=== PATIENT | female | born 1975 | race American Indian/Alaskan Native ===

== ENCOUNTER 2016-07-19 14:28 | Emergency (ER) | payer MEDICARE ==
[2016-07-19 14:36] VITALS: BP 119/80
--- NOTE | 2016-07-19 16:06 | Emergency Department Report ---
- General Chief Complaint: Upper Respiratory Infection Stated Complaint: FLU LIKE SYMPTOMS Time Seen by Provider: 07/19/16 15:46 Source: patient, family Mode of arrival: Ambulatory Limitations: No Limitations - History of Present Illness Initial Comments: Patient here reports suicidal, fever or earache bodyache cough 3 days. She says she's been having nasal congestion for 3 weeks but her symptoms getting worse over the last 3 days. She says she is [id number] cold and cough medicine but didn't help. Denies any shortness of breath or chest pain. Denies any drooling or difficulty swallowing. He says she's having generalized pain to include her throat 10 out of 10 and achy. Denies any nausea vomiting. Denies any abdominal pain or diarrhea. MD Complaint: fever, cough, sore throat, rhinorrhea, nasal congestion Onset/Timin -: week(s) Severity: severe Severity scale (0 -10): 10 Quality: aching Consistency: constant Improves With: OTC cold medicine Worsens With: nothing Context: other (unknown) Associated Symptoms: fever, chills, myalgias, rhinorrhea, nasal congestion, sore throat, cough, ear pain. denies: diaphoresis, headache, stiff neck, chest pain, shortness of breath, abdominal pain, nausea, vomiting, diarrhea, dysuria, rash, confusion, right sweats, weight loss, epistaxis, hoarseness Treatments Prior to Arrival: none - Related Data Previous Rx's Medication Instructions Recorded Last Taken Type Azithromycin [Zithromax Z-LILIAN] 250 mg PO DAILY #14 tab 07/19/16 Unknown Rx Brompheniramine/Pseudoephed/Dm 10 ml PO BID PRN #100 syrup 07/19/16 Unknown Rx [Bromfed Dm Cough Syrup] Cetirizine HCl [ZyrTEC] 10 mg PO QDAY #14 capsule 07/19/16 Unknown Rx Fluticasone [Flonase] 1 spray NS QDAY #1 bottle 07/19/16 Unknown Rx Allergies Allergy/AdvReac Type Severity Reaction Status Date / Time No Known Allergies Allergy Unverified 07/19/16 14:34 ED Review of Systems ROS: Stated complaint: FLU LIKE SYMPTOMS Other details as noted in HPI Comment: All other systems reviewed and negative Constitutional: chills, fever Eyes: denies: eye pain, eye discharge ENT: ear pain, throat pain, congestion Respiratory: no symptoms reported, cough. denies: orthopnea, shortness of breath, SOB with exertion, SOB at rest, stridor, wheezing Cardiovascular: denies: chest pain, palpitations, edema, syncope Gastrointestinal: denies: abdominal pain, nausea, vomiting, diarrhea Genitourinary: denies: urgency, dysuria, frequency, hematuria, discharge, abnormal menses, dyspareunia Musculoskeletal: arthralgia, myalgia. denies: back pain, joint swelling Skin: denies: rash Neurological: denies: headache, weakness, numbness, paresthesias, confusion, abnormal gait, vertigo ED Past Medical Hx - Past Medical History Previous Medical History?: No Hx Seizures: Yes Hx Psychiatric Treatment: Yes Additional medical history: Fibromyalgia, anxiety depression disorder - Surgical History Past Surgical History?: Yes Additional Surgical History: Ectopic - Family History Family history: hypertension - Social History Smoking Status: Current Every Day Smoker Substance Use Type: Alcohol, Marijuana - Medications Home Medications: Home Medications Medication Instructions Recorded Confirmed Last Taken Type Azithromycin [Zithromax Z-LILIAN] 250 mg PO DAILY #14 tab 07/19/16 Unknown Rx Brompheniramine/Pseudoephed/Dm 10 ml PO BID PRN #100 syrup 07/19/16 Unknown Rx [Bromfed Dm Cough Syrup] Cetirizine HCl [ZyrTEC] 10 mg PO QDAY #14 capsule 07/19/16 Unknown Rx Fluticasone [Flonase] 1 spray NS QDAY #1 bottle 07/19/16 Unknown Rx ED Physical Exam - General Limitations: No Limitations General appearance: alert, in no apparent distress - Head Head exam: Present: atraumatic, normocephalic, normal inspection - Eye Eye exam: Present: normal appearance, PERRL, EOMI. Absent: scleral icterus, conjunctival injection, periorbital swelling, periorbital tenderness Pupils: Present: normal accommodation - ENT ENT exam: Present: normal orophraynx, mucous membranes moist, normal external ear exam, other (nasal mucosa congested.nasal mucosa erythema. clear drainage. frontal and max. sinus TTP.). Absent: TM's normal bilaterally - Neck Neck exam: Present: normal inspection, full ROM. Absent: tenderness, meningismus, lymphadenopathy - Expanded Neck Exam Expanded Neck exam: Absent: tenderness, midline deformity, anterior neck swelling, tracheal deviation - Respiratory Respiratory exam: Present: normal lung sounds bilaterally, respiratory distress , other (congested cough). Absent: wheezes, rales, rhonchi, stridor, chest wall tenderness, accessory muscle use, decreased breath sounds, prolonged expiratory - Cardiovascular Cardiovascular Exam: Present: regular rate, normal rhythm, normal heart sounds - GI/Abdominal GI/Abdominal exam: Present: soft, normal bowel sounds. Absent: distended, tenderness, guarding, rebound, rigid - Extremities Exam Extremities exam: Present: normal inspection, full ROM, normal capillary refill. Absent: tenderness, pedal edema, joint swelling, calf tenderness - Back Exam Back exam: Present: normal inspection, full ROM. Absent: tenderness, CVA tenderness (R), CVA tenderness (L), muscle spasm, paraspinal tenderness, vertebral tenderness, rash noted - Neurological Exam Neurological exam: Present: alert, oriented X3, normal gait - Psychiatric Psychiatric exam: Present: normal affect, normal mood - Skin Skin exam: Present: warm, dry, intact, normal color. Absent: rash ED Course Vital Signs 07/19/16 07/19/16 14:34 16:25 Temperature 99.3 F Pulse Rate 103 H Respiratory 20 18 Rate Blood Pressure 119/80 O2 Sat by Pulse 100 Oximetry Vital Signs 07/19/16 07/19/16 07/19/16 14:34 16:25 19:00 Temperature 99.3 F Pulse Rate 103 H 84 Respiratory 20 18 18 Rate Blood Pressure 119/80 O2 Sat by Pulse 100 97 Oximetry - Reevaluation(s) Reevaluation #1: 07/19/16 17:31 Patient received Deltasone 60 mg and Motrin 800 mg in emergency room. ED Medical Decision Making - Radiology Data Radiology results: image reviewed interpreted by me: Chest x-ray revealed no acute cardiopulmonary processes - Medical Decision Making ED course: Patient here. Sinus infection. She was treated in emergency room with a physical 60 mg by mouth and Motrin 800 mg by mouth. Chest x-ray revealed no acute cardiopulmonary processes. Influenza A and B test negative. This was communicated with patient. She was discharged home with prescription for Flonase, Zyrtec, Bromfed-DM and Z-Lilian. I instructed her to follow up with her primary care physician if she does not have one to follow-up with outside Medical Center in 3-5 days. Critical care attestation.: If time is entered above; I have spent that time in minutes in the direct care of this critically ill patient, excluding procedure time. ED Disposition Clinical Impression: Acute bacterial rhinosinusitis, Cough Disposition: DISCHARGED TO HOME OR SELFCARE Is pt being admited?: No Does the pt Need Aspirin: No Condition: Stable Instructions: Acute Bacterial Rhinosinusitis (ED), Acute Cough (ED) Additional Instructions: Please flush your nostrils out with Saline nasal wash. Take Medication as prescribed Prescriptions: Azithromycin [Zithromax Z-LILIAN] 250 mg PO DAILY #14 tab Brompheniramine/Pseudoephed/Dm [Bromfed Dm Cough Syrup] 10 ml PO BID PRN #100 syrup PRN Reason: Cough Cetirizine HCl [ZyrTEC] 10 mg PO QDAY #14 capsule Fluticasone [Flonase] 1 spray NS QDAY #1 bottle Referrals: PRIMARY CARE, [Primary Care Provider] - 3-5 Days Forms: Work/School Release Form(ED), Accompanied Note
[2016-07-19] MEDS ORDERED: DELTASONE PO ONE (16:08)
[2016-07-19] MEDS ORDERED: MOTRIN PO ONE (16:08)
--- NOTE | 2016-07-22 12:59 | XRay Report ---
CHEST 2 VIEWS INDICATION: Cough, fever. COMPARISON: None similar at this institution. FINDINGS: PA and lateral chest radiographs demonstrate normal cardiomediastinal silhouette. Clear lungs. Intact bones. CONCLUSION: No acute disease in the chest. Thank you for the opportunity to participate in this patient's care.
== END 2016-07-19 19:00 | disposition home or self-care (01) ==
LOC: ED 14:28
DX: J01.90 Acute sinusitis, unspecified (principal); F17.200 Nicotine dependence, unspecified, uncomplicated; F12.10 Cannabis abuse, uncomplicated
CPT/HCPCS: 71020; 87400; 99283; J7512

== ENCOUNTER 2016-11-11 10:18 | Emergency (ER) | payer MEDICARE ==
[2016-11-11 10:38] VITALS: BP 125/81
[2016-11-11] MEDS ORDERED: MOTRIN PO ONE (10:45)
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
--- NOTE | 2016-11-11 12:19 | Emergency Department Report ---
ED General Adult HPI - General Chief complaint: Fall Stated complaint: FALL Time Seen by Provider: 11/11/16 11:59 Source: patient Mode of arrival: Ambulatory Limitations: No Limitations - History of Present Illness Initial comments: Symptoms in the ER today with some continued complaints of left lower back and left hip pain for the past 3 weeks. Patient states that she fell down some steps 3 weeks ago and has seen urgent care multiple times for such. Patient further notes that she also sees pain management and gets Lortab, Xanax, Neurontin, Flexeril on a regular basis. Patient came in today stating that she would like to have an MRI to see if she done any more damage to her known herniated disks in her lower back. Patient denies any loss of bowel control, urinary control, numbness, tingling. -: week(s) (3) Severity scale (0 -10): 6 - Related Data Previous Rx's Medication Instructions Recorded Last Taken Type Azithromycin [Zithromax Z-LILIAN] 250 mg PO DAILY #14 tab 07/19/16 Unknown Rx Brompheniramine/Pseudoephed/Dm 10 ml PO BID PRN #100 syrup 07/19/16 Unknown Rx [Bromfed Dm Cough Syrup] Cetirizine HCl [ZyrTEC] 10 mg PO QDAY #14 capsule 07/19/16 Unknown Rx Fluticasone [Flonase] 1 spray NS QDAY #1 bottle 07/19/16 Unknown Rx Allergies Allergy/AdvReac Type Severity Reaction Status Date / Time No Known Allergies Allergy Unverified 07/19/16 14:34 ED Review of Systems ROS: Stated complaint: FALL Other details as noted in HPI Constitutional: denies: chills, fever Eyes: denies: eye pain, eye discharge, vision change ENT: denies: ear pain, throat pain Respiratory: denies: cough, shortness of breath, wheezing Cardiovascular: denies: chest pain, palpitations Endocrine: no symptoms reported Gastrointestinal: denies: abdominal pain, nausea, diarrhea Genitourinary: denies: urgency, dysuria, discharge Musculoskeletal: back pain, arthralgia, myalgia. denies: joint swelling Skin: denies: rash, lesions Neurological: denies: headache, weakness, numbness, paresthesias, confusion Psychiatric: denies: anxiety, depression Hematological/Lymphatic: denies: easy bleeding, easy bruising ED Past Medical Hx - Past Medical History Previous Medical History?: Yes Hx Seizures: Yes Hx Psychiatric Treatment: Yes Additional medical history: Fibromyalgia, anxiety depression disorder - Surgical History Past Surgical History?: Yes Additional Surgical History: Ectopic - Social History Smoking Status: Current Some Day Smoker Substance Use Type: Alcohol - Medications Home Medications: Home Medications Medication Instructions Recorded Confirmed Last Taken Type Azithromycin [Zithromax Z-LILIAN] 250 mg PO DAILY #14 tab 07/19/16 Unknown Rx Brompheniramine/Pseudoephed/Dm 10 ml PO BID PRN #100 syrup 07/19/16 Unknown Rx [Bromfed Dm Cough Syrup] Cetirizine HCl [ZyrTEC] 10 mg PO QDAY #14 capsule 07/19/16 Unknown Rx Fluticasone [Flonase] 1 spray NS QDAY #1 bottle 07/19/16 Unknown Rx ED Physical Exam - General Limitations: No Limitations General appearance: alert, in no apparent distress - Head Head exam: Present: atraumatic, normocephalic - Eye Eye exam: Present: normal appearance - ENT ENT exam: Present: mucous membranes moist - Neck Neck exam: Present: normal inspection - Respiratory Respiratory exam: Present: normal lung sounds bilaterally. Absent: respiratory distress - Cardiovascular Cardiovascular Exam: Present: regular rate, normal rhythm. Absent: systolic murmur, diastolic murmur, rubs, gallop - GI/Abdominal GI/Abdominal exam: Present: soft, normal bowel sounds - Extremities Exam Extremities exam: Present: normal inspection - Back Exam Back exam: Present: normal inspection. Absent: full ROM, tenderness, CVA tenderness (R), CVA tenderness (L), muscle spasm, paraspinal tenderness, vertebral tenderness - Neurological Exam Neurological exam: Present: alert, oriented X3, CN II-XII intact, abnormal gait (limping secondary to pain), reflexes normal. Absent: motor sensory deficit - Psychiatric Psychiatric exam: Present: normal affect, normal mood - Skin Skin exam: Present: warm, dry, intact, normal color. Absent: rash ED Course Vital Signs 11/11/16 10:35 Temperature 98.3 F Pulse Rate 89 Respiratory 16 Rate Blood Pressure 125/81 O2 Sat by Pulse 100 Oximetry ED Medical Decision Making - Medical Decision Making She is nontoxic and hemodynamically stable. I informed patient that typically we do not do MRIs here in the ER for complaints as hers. Patient does state that she does not really want any medication but rather supine to find out what is going on. I will refer patient to orthopedics for anticipated MRI and further evaluation. Patient is in agreement with treatment plan and stable for discharge. Critical care attestation.: If time is entered above; I have spent that time in minutes in the direct care of this critically ill patient, excluding procedure time. ED Disposition Clinical Impression: Low back pain, Hip pain, left, Fall with injury Disposition: TO HOME OR SELFCARE Is pt being admited?: No Does the pt Need Aspirin: No Condition: Good Instructions: Lumbar Disc Herniation (ED), Contusion in Adults (ED) Referrals: PRIMARY CAREMD [Primary Care Provider] - 3-5 Days MARC BUSTOS MD [Staff Physician] - 3-5 Days Time of Disposition: 12:23
== END 2016-11-11 12:39 | disposition home or self-care (01) ==
LOC: ED 10:18
DX: M54.5 Low back pain (principal); M25.552 Pain in left hip; F17.200 Nicotine dependence, unspecified, uncomplicated; W10.9XXA Fall (on) (from) unspecified stairs and steps, initial encounter; Y93.9 Activity, unspecified; Y92.9 Unspecified place or not applicable; Y99.9 Unspecified external cause status
CPT/HCPCS: 99282

== ENCOUNTER 2017-01-03 14:42 | Emergency (ER) | payer MEDICARE ==
[2017-01-03 15:09] VITALS: BP 122/87
[2017-01-03 15:38] LABS: Basophils % (Auto) 0.8 % (0.0-1.8); Eosinophils % (Auto) 0.9 % (0.0-4.3); Hematocrit 38.6 % (30.3-42.9); Hemoglobin 12.6 gm/dl (10.1-14.3); Mean Corpuscular HGB Conc 33 % (30-34); Mean Corpuscular Hemoglobin 28 pg (28-32); Mean Corpuscular Volume 84 fl (79-97); Platelet Count 266 K/mm3 (140-440); Red Blood Count 4.59 M/mm3 (3.65-5.03); Red Cell Distribution Width 15.6 % (13.2-15.2); White Blood Count 7.4 K/mm3 (4.5-11.0)
[2017-01-03 15:52] LABS: Bacteria,Urine 1+ /HPF (Negative); Bilirubin,Urine NEG (Negative); Blood,Urine NEG (Negative); Ketones,Urine NEG (Negative); Leukocyte Esterase,Urine NEG (Negative); Mucus,Urine FEW /HPF; Nitrite,Urine NEG (Negative); Protein,Urine <15 mg/dL mg/dL (Negative); WBC,Urine < 1.0 /HPF (0.0-6.0)
[2017-01-03 15:56] LABS: Alanine Aminotransferase 11 units/L (7-56); Albumin 4.3 g/dL (3.9-5); Albumin/Globulin Ratio 1.1 %; Alkaline Phosphatase 40 units/L (35-129); Anion Gap 17 mmol/L; BUN/Creatinine Ratio 24.28; Blood Urea Nitrogen 17 mg/dL (7-17); Calcium 9.3 mg/dL (8.4-10.2); Carbon Dioxide 24 mmol/L (22-30); Chloride 100.7 mmol/L (98-107); Glucose 96 mg/dL (65-100); Lipase 29 units/L (13-60); Potassium 4.8 mmol/L (3.6-5.0); Sodium 137 mmol/L (137-145); Total Protein 8.3 g/dL (6.3-8.2)
[2017-01-03] MEDS ORDERED: ZOFRAN ONE (17:25)
== END 2017-01-03 20:16 | disposition left against medical advice (07) ==
LOC: ED 14:42
DX: K35.80 Unspecified acute appendicitis (principal); Z72.0 Tobacco use; Z53.21 Procedure and treatment not carried out due to patient leaving prior to being seen by health care provider
CPT/HCPCS: 36415; 80053; 81001; 83690; 84703; 85025; J2405

== ENCOUNTER 2017-03-03 03:18 | Emergency (ER) | payer MEDICARE ==
[2017-03-03] MEDS ORDERED: CATAPRES ONE (03:57)
[2017-03-03] MEDS: CATAPRES PO ONE (04:10)
[2017-03-03 04:47] LABS: Basophils % (Auto) 0.2 % (0.0-1.8); Eosinophils % (Auto) 3.8 % (0.0-4.3); Hematocrit 36.8 % (30.3-42.9); Hemoglobin 12.4 gm/dl (10.1-14.3); Mean Corpuscular HGB Conc 34 % (30-34); Mean Corpuscular Hemoglobin 28 pg (28-32); Mean Corpuscular Volume 83 fl (79-97); Platelet Count 224 K/mm3 (140-440); Red Blood Count 4.42 M/mm3 (3.65-5.03); Red Cell Distribution Width 15.5 % (13.2-15.2); White Blood Count 6.3 K/mm3 (4.5-11.0)
[2017-03-03 04:59] LABS: Anion Gap 18 mmol/L; BUN/Creatinine Ratio 19; Blood Urea Nitrogen 15 mg/dL (7-17); Calcium 8.6 mg/dL (8.4-10.2); Carbon Dioxide 19 mmol/L (22-30); Chloride 103.8 mmol/L (98-107); Glucose 94 mg/dL (65-100); Potassium 4.2 mmol/L (3.6-5.0); Sodium 137 mmol/L (137-145)
[2017-03-03 05:36] VITALS: BP 108/63
--- NOTE | 2017-03-03 06:05 | Cat Scan Report ---
FINAL REPORT EXAM: CT HEAD/BRAIN WO CON HISTORY: jack TECHNIQUE: Routine axial imaging was obtained of the brain without IV contrast. FINDINGS: There are no attenuation abnormalities. The ventricular system is appropriate in size and is symmetric. The posterior fossa structures appear normal. The sinuses are clear. The mastoid air cells are well pneumatized. IMPRESSION: Within normal limits.
== END 2017-03-03 04:18 | disposition left against medical advice (07) ==
LOC: ED 03:18
DX: R07.9 Chest pain, unspecified (principal); R51 Headache; Z53.21 Procedure and treatment not carried out due to patient leaving prior to being seen by health care provider
CPT/HCPCS: 36415; 70450; 80048; 84484; 84703; 85025; 93005; 93010

== ENCOUNTER 2018-03-07 10:37 | Emergency (ER) | payer MEDICARE ==
[2018-03-07 10:55] VITALS: BP 125/82
--- NOTE | 2018-03-07 11:27 | Emergency Department Report ---
ED Medical Clearance [facility] - General Chief complaint: Medical Clearance Stated complaint: REFILL MEDS Time Seen by Provider: 03/07/18 11:14 Source: patient Mode of arrival: Ambulatory - History of Present Illness Initial comments: 42-year-old Afro-[place] female has a history of anxiety reports utilizing Xanax 1 mg 4 times a day reports been out of her medication for the last 3-4 days since Friday department requesting a medication refill. Reports that her current side is distending the practice in 5 to follow-up with a new provider. However appointment. She reports is nontender April 13 with a Mario Lara. She reports no current withdrawal symptoms. And has not been utilizing in the illicit or prescribed medication substitutions. MD Complaint: medical clearance request Reason for Medical Clearance: other trauma Place: home Alledged Intoxication: No Compliant with Home Medications: No Traumatic Symptoms: denies traumatic injury Treatments Prior to Arrival: none Home medications: Previous Rx's Medication Instructions Recorded Last Taken Type Azithromycin [Zithromax Z-LILIAN] 250 mg PO DAILY #14 tab 07/19/16 Unknown Rx Brompheniramine/Pseudoephed/Dm 10 ml PO BID PRN #100 syrup 07/19/16 Unknown Rx [Bromfed Dm Cough Syrup] Cetirizine HCl [ZyrTEC] 10 mg PO QDAY #14 capsule 07/19/16 Unknown Rx Fluticasone [Flonase] 1 spray NS QDAY #1 bottle 07/19/16 Unknown Rx Allergies/Adverse reactions: Allergies Allergy/AdvReac Type Severity Reaction Status Date / Time No Known Allergies Allergy Unverified 07/19/16 14:34 ED Review of Systems ROS: Stated complaint: REFILL MEDS Other details as noted in HPI Constitutional: denies: chills, fever Eyes: denies: eye pain, eye discharge, vision change ENT: denies: ear pain, throat pain Respiratory: denies: cough, shortness of breath, wheezing Cardiovascular: denies: chest pain, palpitations Endocrine: no symptoms reported Gastrointestinal: denies: abdominal pain, nausea, diarrhea Genitourinary: denies: urgency, dysuria, discharge Musculoskeletal: denies: back pain, joint swelling, arthralgia Skin: denies: rash, lesions Neurological: denies: headache, weakness, paresthesias Psychiatric: denies: anxiety, depression Hematological/Lymphatic: denies: easy bleeding, easy bruising ED Past Medical Hx - Past Medical History Previous Medical History?: Yes Hx Seizures: Yes Hx Psychiatric Treatment: Yes (Anxiety) Additional medical history: Fibromyalgia, anxiety depression disorder - Surgical History Past Surgical History?: Yes Additional Surgical History: Ectopic - Social History Smoking Status: Current Some Day Smoker Substance Use Type: None - Medications Home Medications: Home Medications Medication Instructions Recorded Confirmed Last Taken Type Azithromycin [Zithromax Z-LILIAN] 250 mg PO DAILY #14 tab 07/19/16 Unknown Rx Brompheniramine/Pseudoephed/Dm 10 ml PO BID PRN #100 syrup 07/19/16 Unknown Rx [Bromfed Dm Cough Syrup] Cetirizine HCl [ZyrTEC] 10 mg PO QDAY #14 capsule 07/19/16 Unknown Rx Fluticasone [Flonase] 1 spray NS QDAY #1 bottle 07/19/16 Unknown Rx ED Physical Exam - General Limitations: No Limitations General appearance: alert, in no apparent distress - Head Head exam: Present: atraumatic, normocephalic - Eye Eye exam: Present: normal appearance, PERRL, EOMI Pupils: Present: normal accommodation - ENT ENT exam: Present: normal exam, mucous membranes moist - Neck Neck exam: Present: normal inspection - Respiratory Respiratory exam: Present: normal lung sounds bilaterally. Absent: respiratory distress - Cardiovascular Cardiovascular Exam: Present: regular rate, normal rhythm. Absent: systolic murmur, diastolic murmur, rubs, gallop - GI/Abdominal GI/Abdominal exam: Present: soft, normal bowel sounds - Extremities Exam Extremities exam: Present: normal inspection - Back Exam Back exam: Present: normal inspection - Neurological Exam Neurological exam: Present: alert, oriented X3, CN II-XII intact - Psychiatric Psychiatric exam: Present: normal affect, normal mood. Absent: depressed, flat affect, manic, homicidal ideation, suicidal ideation - Skin Skin exam: Present: warm, dry, intact, normal color. Absent: rash ED Course Vital Signs 03/07/18 10:45 Temperature 99.2 F Pulse Rate 101 H Respiratory 16 Rate Blood Pressure 125/82 O2 Sat by Pulse 99 Oximetry ED Disposition Clinical Impression: Medication refill Disposition: - TO HOME OR SELFCARE Is pt being admited?: No Does the pt Need Aspirin: No Condition: Stable Instructions: Alprazolam (By mouth) [facility]
== END 2018-03-07 12:07 | disposition home or self-care (01) ==
LOC: ED 10:37
DX: F41.9 Anxiety disorder, unspecified (principal); Z76.0 Encounter for issue of repeat prescription; M79.10 Myalgia, unspecified site; F32.9 Major depressive disorder, single episode, unspecified; F17.200 Nicotine dependence, unspecified, uncomplicated
CPT/HCPCS: 99282

== ENCOUNTER 2018-10-18 03:26 | Emergency (ER) | payer MEDICARE ==
[2018-10-18 03:38] VITALS: BP 151/91
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
== END 2018-10-18 11:54 | disposition home or self-care (01) ==
LOC: ED 03:26
DX: T74.11XA Adult physical abuse, confirmed, initial encounter (principal); M54.2 Cervicalgia; M79.7 Fibromyalgia; F17.200 Nicotine dependence, unspecified, uncomplicated; Y07.9 Unspecified perpetrator of maltreatment and neglect
CPT/HCPCS: 99282

== ENCOUNTER 2019-05-22 10:23 | Emergency (ER) | payer MEDICARE ==
[2019-05-22 10:40] VITALS: BP 133/58
== END 2019-05-22 10:30 | disposition left against medical advice (07) ==
LOC: ED 10:23
DX: M54.2 Cervicalgia (principal); Z53.21 Procedure and treatment not carried out due to patient leaving prior to being seen by health care provider